=== PATIENT | female | born 1985 | race Caucasian/White ===

== ENCOUNTER 2018-12-25 22:56 | Inpatient (IN) | payer BC, OTHER ==
[~2018-12-25] VITALS: Ht 160 cm; Wt 130.2 kg
[~2018-12-25 22:56] MED LIST: CITA20TA9 PO; FOLI200T13 PO; LACT1CAP35 PO; ONDA4TAB12 PO; OXYC-302 PO; PREN1TAB56 PO
[2018-12-25] MEDS ORDERED: ENALAPRILAT 1.25 MG/ML, 2ML IVPush PRN (23:00)
[2018-12-25] MEDS ORDERED: ONDANSETRON ODT 4 MG PO PRN (23:00)
[2018-12-25] MEDS ORDERED: VANCOMYCIN PER PHARMACY MC PRN (23:00)
[2018-12-25] MEDS ORDERED: ACETAMINOPHEN 325 MG TABLET PO PRN (23:00)
[2018-12-25] MEDS ORDERED: CYCLOBENZAPRINE 10 MG TABLET PO PRN (23:00)
[2018-12-25] MEDS ORDERED: ZOLPIDEM 5MG TABLET PO PRN (23:00)
[2018-12-25 23:39] VITALS: BP 137/76
[2018-12-25 23:57] LABS: BASOPHILS # (AUTO) 0.07 x10^3/uL (0-0.1); BASOPHILS % (AUTO) 1 % (0-1); EOSINOPHILS # (AUTO) 0.19 x10^3/uL (0-0.4); EOSINOPHILS % (AUTO) 1 % (1-7); LYMPHOCYTES # (AUTO) 3.53 x10^3/uL (1-3.4); LYMPHOCYTES % (AUTO) 26 % (22-44); MD NO; MEAN CORPUSCULAR HEMOGLOBIN 29.7 pg (27.0-34.8); MEAN CORPUSCULAR HGB CONC 33.3 g/dL (32.4-35.8); MEAN CORPUSCULAR VOLUME 89.2 fL (80-100); MONOCYTES # (AUTO) 0.56 x10^3/uL (0.2-0.8); MONOCYTES % (AUTO) 4 % (2-9); NEUTROPHILS % (AUTO) 69 % (42-75); PLATELET COUNT 378 x10^3/uL (130-400); RED BLOOD COUNT 4.61 x10^6/uL (3.82-5.3); RED CELL DISTRIBUTION WIDTH 13.9 % (9.6-15.2)
[2018-12-25 23:58] LABS: HCT (SEDRATE) 41.6 % (34.6-47.8)
[2018-12-26] MEDS ORDERED: MELO7.5T31 PO (00:15)
[2018-12-26] MEDS ORDERED: ESOM20TA PO ×2 (00:15)
[2018-12-26] MEDS ORDERED: SULF1TAB24 PO (00:15)
[2018-12-26] MEDS ORDERED: SPIR50TA4 PO (00:15)
[2018-12-26] MEDS ORDERED: GABA300C10 PO (00:15)
[2018-12-26] MEDS ORDERED: TIZA2TAB PO (00:15)
[2018-12-26] MEDS ORDERED: PHARMACOKINETIC MONITORING MC PRN (00:30)
[2018-12-26] MEDS ORDERED: PHARMACOKINETIC CONSULTATION MC ONE (00:30)
[2018-12-26] MEDS: GABAPENTIN 300 MG CAPSULE PO SCH ×2 (00:34→21:46)
[2018-12-26] MEDS: ENOXAPARIN 40 MG/0.4 ML SQ SCH (00:34)
[2018-12-26] MEDS: VANCOMYCIN 2,000 MG in SODIUM CHLORIDE 0.9% 500 ML IV SCH ×2 (01:05→12:51)
[2018-12-26] MEDS: SODIUM CHLORIDE 0.9% 1,000 ML IV SCH ×2 (01:05→12:51)
[2018-12-26 02:20] VITALS: BP 111/68
[2018-12-26] MEDS: HYDROcodone/APAP 5/325 TABLET PO PRN ×3 (04:26→17:42)
[2018-12-26 05:57] LABS: ALBUMIN 3.2 g/dL (3.4-5.0); ANION GAP 6 mmol/L (5-15); CALCIUM 8.2 mg/dL (8.5-10.1); CHLORIDE 109 mmol/L (98-107)
[2018-12-26 06:01] LABS: ALANINE AMINOTRANSFERASE 22 U/L (12-78); ALKALINE PHOSPHATASE 82 U/L (45-117); BILIRUBIN,TOTAL 0.3 mg/dL (0.2-1.0); CREATININE 0.85 mg/dL (0.55-1.02); TOTAL PROTEIN 6.6 g/dL (6.4-8.2)
[2018-12-26 07:15] VITALS: BP 119/61
[2018-12-26] MEDS: CITALOPRAM 20 MG TABLET PO SCH (07:54)
[2018-12-26] MEDS: SPIRONOLACTONE 50 MG TABLET PO SCH (07:54)
[2018-12-26] MEDS: IBUPROFEN 600 MG TABLET PO PRN ×2 (10:53→17:42)
[2018-12-26] MEDS ORDERED: BENZOCAINE/MENTHOL CAN TP PRN (13:00)
[2018-12-26] MEDS ORDERED: PANTOPROZOLE 40MG TABLET PO SCH (13:30)
[2018-12-26] MEDS ORDERED: BENZOCAINE AEROSOL SPRAY 20%, 60ML TP PRN (13:30)
[2018-12-26] MEDS: NEXIUM 40MG HOMEMEDPO SCH (14:22)
[2018-12-26 14:40] VITALS: BP 114/63
[2018-12-26 19:49] VITALS: BP 140/67
[2018-12-27] MEDS: SODIUM CHLORIDE 0.9% 1,000 ML IV SCH (00:36)
[2018-12-27] MEDS: ENOXAPARIN 40 MG/0.4 ML SQ SCH (00:36)
[2018-12-27] MEDS: VANCOMYCIN 2,000 MG in SODIUM CHLORIDE 0.9% 500 ML IV SCH ×2 (00:36→13:19)
[2018-12-27 00:38] VITALS: BP 107/64
[2018-12-27] MEDS: HYDROcodone/APAP 5/325 TABLET PO PRN ×3 (04:59→21:46)
[2018-12-27] MEDS: IBUPROFEN 600 MG TABLET PO PRN ×2 (04:59→13:24)
[2018-12-27 05:04] LABS: ANION GAP 2 mmol/L (5-15); CALCIUM 8.3 mg/dL (8.5-10.1); CHLORIDE 115 mmol/L (98-107); CREATININE 0.75 mg/dL (0.55-1.02)
[2018-12-27 05:07] LABS: BASOPHILS # (AUTO) 0.08 x10^3/uL (0-0.1); BASOPHILS % (AUTO) 1 % (0-1); EOSINOPHILS # (AUTO) 0.22 x10^3/uL (0-0.4); EOSINOPHILS % (AUTO) 3 % (1-7); LYMPHOCYTES # (AUTO) 2.59 x10^3/uL (1-3.4); LYMPHOCYTES % (AUTO) 37 % (22-44); MD NO; MEAN CORPUSCULAR HEMOGLOBIN 29.8 pg (27.0-34.8); MEAN CORPUSCULAR HGB CONC 32.9 g/dL (32.4-35.8); MEAN CORPUSCULAR VOLUME 90.5 fL (80-100); MEAN PLATELET VOLUME 7.8 fL (7.4-10.4); MONOCYTES # (AUTO) 0.39 x10^3/uL (0.2-0.8); MONOCYTES % (AUTO) 6 % (2-9); NEUTROPHILS # (AUTO) 3.69 x10^3/uL (1.8-6.8); NEUTROPHILS % (AUTO) 53 % (42-75); PLATELET COUNT 328 x10^3/uL (130-400); RED BLOOD COUNT 4.13 x10^6/uL (3.82-5.3); RED CELL DISTRIBUTION WIDTH 13.8 % (9.6-15.2)
[2018-12-27 07:47] VITALS: BP 123/78
[2018-12-27] MEDS: CITALOPRAM 20 MG TABLET PO SCH (07:51)
[2018-12-27] MEDS: SPIRONOLACTONE 50 MG TABLET PO SCH (07:51)
[2018-12-27] MEDS: NEXIUM 40MG HOMEMEDPO SCH (07:55)
[2018-12-27 14:50] VITALS: BP 122/68
[2018-12-27] MEDS: CYCLOBENZAPRINE 10 MG TABLET PO PRN (18:35)
[2018-12-27 20:03] VITALS: BP 121/61
[2018-12-27] MEDS: GABAPENTIN 300 MG CAPSULE PO SCH (21:44)
[2018-12-28] MEDS: ENOXAPARIN 40 MG/0.4 ML SQ SCH (01:02)
[2018-12-28] MEDS: VANCOMYCIN 2,000 MG in SODIUM CHLORIDE 0.9% 500 ML IV SCH ×2 (01:02→13:10)
[2018-12-28 01:04] VITALS: BP 116/65
[2018-12-28 05:39] LABS: BASOPHILS # (AUTO) 0.06 x10^3/uL (0-0.1); BASOPHILS % (AUTO) 1 % (0-1); EOSINOPHILS # (AUTO) 0.23 x10^3/uL (0-0.4); EOSINOPHILS % (AUTO) 3 % (1-7); LYMPHOCYTES # (AUTO) 3.45 x10^3/uL (1-3.4); LYMPHOCYTES % (AUTO) 47 % (22-44); MD NO; MEAN CORPUSCULAR HEMOGLOBIN 29.7 pg (27.0-34.8); MEAN CORPUSCULAR HGB CONC 33.1 g/dL (32.4-35.8); MEAN CORPUSCULAR VOLUME 89.8 fL (80-100); MONOCYTES # (AUTO) 0.32 x10^3/uL (0.2-0.8); MONOCYTES % (AUTO) 4 % (2-9); NEUTROPHILS # (AUTO) 3.25 x10^3/uL (1.8-6.8); NEUTROPHILS % (AUTO) 45 % (42-75); PLATELET COUNT 351 x10^3/uL (130-400); RED BLOOD COUNT 4.08 x10^6/uL (3.82-5.3)
[2018-12-28 05:57] LABS: ANION GAP 6 mmol/L (5-15); CALCIUM 8.1 mg/dL (8.5-10.1); CHLORIDE 114 mmol/L (98-107); CREATININE 0.67 mg/dL (0.55-1.02)
[2018-12-28] MEDS ORDERED: TEMPLATE NON-FORMULARY CAPSULE HOMEMEDPO SCH (06:00)
[2018-12-28 07:31] VITALS: BP 100/67
[2018-12-28] MEDS: CYCLOBENZAPRINE 10 MG TABLET PO PRN ×2 (08:18→20:56)
[2018-12-28] MEDS: HYDROcodone/APAP 5/325 TABLET PO PRN ×3 (08:18→20:56)
[2018-12-28] MEDS: CITALOPRAM 20 MG TABLET PO SCH (08:18)
[2018-12-28] MEDS: SPIRONOLACTONE 50 MG TABLET PO SCH (08:18)
[2018-12-28 13:15] VITALS: BP 121/77
[2018-12-28] MEDS: GABAPENTIN 300 MG CAPSULE PO SCH (20:56)
[2018-12-28 21:24] VITALS: BP 106/66
[2018-12-29] MEDS: HYDROcodone/APAP 5/325 TABLET PO PRN ×3 (01:03→15:22)
[2018-12-29] MEDS: VANCOMYCIN 2,000 MG in SODIUM CHLORIDE 0.9% 500 ML IV SCH (01:03)
[2018-12-29] MEDS: ENOXAPARIN 40 MG/0.4 ML SQ SCH (01:04)
[2018-12-29 01:09] VITALS: BP 107/64
[2018-12-29 05:44] LABS: ANION GAP 5 mmol/L (5-15); CALCIUM 8.6 mg/dL (8.5-10.1); CHLORIDE 112 mmol/L (98-107); CREATININE 0.72 mg/dL (0.55-1.02)
[2018-12-29] MEDS: CITALOPRAM 20 MG TABLET PO SCH (07:54)
[2018-12-29] MEDS: SPIRONOLACTONE 50 MG TABLET PO SCH (07:54)
[2018-12-29 08:00] VITALS: BP 130/75
[2018-12-29] MEDS ORDERED: AMOX1TAB12 PO (08:42)
[2018-12-29] MEDS ORDERED: AMOXICILLIN/CLAV 875-125MG TABLET PO SCH (09:00)
[2018-12-29] MEDS ORDERED: PANTOPROZOLE 40MG TABLET PO SCH (11:12)
[2018-12-29] MEDS ORDERED: NEXIUM 40MG PO SCH (11:34)
[2018-12-29] MEDS: IBUPROFEN 600 MG TABLET PO PRN (11:51)
[2018-12-29 12:35] VITALS: BP 128/76
[2018-12-29 16:19] VITALS: BP 124/75
== END 2018-12-29 16:30 | disposition home or self-care (01) | DRG 603 ==
LOC: 4NOR 23:34 → DCLOUNGE 12-29 16:18
PROVIDERS: ADMIT Family Medicine; ATTEND Family Medicine
DX: L03.311 Cellulitis of abdominal wall (principal); E28.2 Polycystic ovarian syndrome; F32.9 Major depressive disorder, single episode, unspecified; G47.00 Insomnia, unspecified; K21.9 Gastro-esophageal reflux disease without esophagitis; M53.3 Sacrococcygeal disorders, not elsewhere classified; Z79.899 Other long term (current) drug therapy; Z90.49 Acquired absence of other specified parts of digestive tract; Z98.84 Bariatric surgery status; L02.211 Cutaneous abscess of abdominal wall
CPT/HCPCS: 36415; 76705; 80048; 80053; 80202; 83605; 85025; 85651; 87070; 87077; 87147; 87186; 87205; G0378; J1650; J3370; Q0162; J7030; J7040